=== PATIENT | male | born 1950 | race Caucasian/White ===

== ENCOUNTER 2022-01-26 09:31 | Day surgery (SDC) | payer MEDICARE, OTHER, SELFPAY ==
[2022-01-26 10:15] VITALS: BP 118/73; PULSE 54; RESP 16; TEMP 36.3; O2SAT 93
[2022-01-26] MEDS: Tropicam./Phenyleph. (1/2.5%) 5 ML BTL OD ×3 (10:31→10:42)
--- NOTE | 2022-01-26 11:37 | ANES.PREOP_ITS ---
General Info Date of Service Date Performed: 01/26/22 Height: 5 ft 9 in Weight: 115.4 kg Body Mass Index (BMI): 37.5 Surgical Procedure: Operation Date: 01/26/22 12:40 Proposed Procedure Side Surgeon p Cataract Extraction with IOL Implant Right Stevie Mendzoa MD Meds Allergies and Home Medications Allergies Allergy/AdvReac Type Severity Reaction Status Date / Time gluten Allergy Verified 01/26/22 10:29 iodine Allergy Verified 01/26/22 10:29 levofloxacin Allergy Diarrhea Verified 01/26/22 10:29 shellfish derived Allergy Other (See Verified 01/26/22 10:29 Comment) simvastatin Allergy Verified 01/26/22 10:29 Home Medication Medication Instructions Recorded coenzyme Q10 100 mg capsule 100 mg PO DAILY 01/24/22 colchicine 0.6 mg tablet (Colcrys) 0.6 mg PO BID PRN 01/24/22 fluorouracil 5 % topical cream 1 applic topical BID 01/24/22 (Efudex) furosemide 20 mg tablet 20 mg DAILY 01/24/22 ibuprofen 800 mg tablet 800 mg PO TID PRN 01/24/22 levothyroxine 25 mcg tablet 25 mcg PO DAILY 01/24/22 metoprolol tartrate 100 mg tablet 100 mg PO DAILY 01/24/22 galmnbkh-gfyglgfwn-ppzezdtid 3.5 4 drp otic (ear) Q8H 01/24/22 mg-10,000 unit/mL-1 % ear drops,susp omega 2-yxb-cbs-fish oil 1,000 mg 1,000 cap PO DAILY 01/24/22 (120 mg-180 mg) capsule (Fish Oil) potassium chloride 20 mEq 20 meq PO DAILY 01/24/22 tablet,extended release triamcinolone acetonide 0.1 % 1 applic topical BID PRN 01/24/22 topical cream Current Visit Medications: Current Medications Generic Name Dose Route Start Last Admin Trade Name Freq PRN Reason Stop Dose Admin Acetaminophen 1,000 mg 01/26/22 06:00 Acetaminophen 500 Mg Tab PO Q4H PRN PRN Miscellaneous Medication 0 ml 01/26/22 06:00 Prednisolone 1%, Moxifloxacin 0.5%, Nepafenac 0.1% 5ml Btl OD DIRECTED RUTH Miscellaneous Medication 0 ml 01/26/22 06:00 01/26/22 10:42 Tropicam./Phenyleph. (1/2.5%) 5 Ml Btl OD 1 drp DIRECTED R[facility] Administration Tetracaine HCl 0 ml 01/26/22 06:00 Tetracaine 0.5% 4 Ml Btl OD DIRECTED [facility] Medical History Medical History (Updated 01/26/22 @ 11:51 by Stevie Mendoza MD) COVID 10/2021 Hx of cataract Hx of essential hypertension Hx of gout Hx of hyperlipidemia Perianal cyst removed 2000 Surgical History Surgical History Hx of cholecystectomy Hx of colonoscopy Hx of foot surgery heel spur right foot Tobacco Smoking/Tobacco Use Status: Former Tobacco Use Alcohol Alcohol Intake: never Substance Use Substance use: Never Substance use type: does not use Vital Signs and Lab Results Vital Signs Most Recent Vital Signs in EMR: Most Recent Vital Signs Temp Pulse Resp BP Pulse Ox 36.3 C L 54 L 16 118/73 93 01/26/22 10:15 01/26/22 10:15 01/26/22 10:15 01/26/22 10:15 01/26/22 10:15 Lab Results Blood Type / Crossmatch: No Data to Display Complete Blood Count: No Data to Display Complete Metabolic Panel: No Data to Display Liver Function Panel: No Data to Display Coagulation Panel: No Data to Display Cardiac Panel: No Data to Display Arterial Blood Gas: No Data to Display Venous Blood Gas: No Data to Display Pancreas Panel: No Data to Display Thyroid Panel: No Data to Display Infectious Disease: No Data to Display Blood Cultures: No Data to Display Toxicology Panel: No Data to Display Anesthesia Assessment and Plan Anesthesia History Personal History: No History of Anesthesia Complications Family History: No Family History of Anesthesia Complications Exercise Tolerance Exercise Tolerance: Metabolic Equivalents>4 Pertinent Negatives Pertinent Negatives: No Symptoms of GERD, No Major Cardiovascular Symptoms or Complaints and No Major Pulmonary Symptoms or Complaints Cardiac & Pulmonary Exam Cardiac Exam: Normal S1/S2 Heart Sounds Pulmonary Exam: Clear Bilateral Breath Sounds Implantable Cardiac Device Does patient have a Pacemaker or an ICD?: No Airway Exam Known Difficult Airway: No Mallampati Class: 2 Mouth Opening: Normal (> 3cm) Thyromental Distance: Greater than 3 cm Facial Hair: Full Han Neck Range of Motion: Full ROM Neck Circumference: Normal Teeth Condition: Removable Dentures/Plates Upper and Removable Dentures/Plates Lower ASA Classification ASA Score: ASA 2 Emergency Case?: No NPO Status NPO Status: NPO Clears >2 hours, Solids >8 hours Anesthesia Plan Resuscitation Status: Full Code Anesthesia Technique: MAC Anesthesia Airway Planned: Natural Airway Monitors Used: Standard Monitors
[2022-01-26 11:40] VITALS: BMI 37.5
[2022-01-26] MEDS: Balanced Salt Soln.-PLUS 500 ML BAG (12:17)
[2022-01-26] MEDS: Tetracaine 0.5% 4 ML BTL OD (12:17)
[2022-01-26] MEDS: Lidocaine 2% Jelly 6 ML SYR (12:18)
[2022-01-26] MEDS: Duovisc Viscoelastic System EACH 1 EACH (12:18)
[2022-01-26] MEDS: Povidone-Iodine Ophth 30 ML BTL (12:23)
[2022-01-26] MEDS: Trypan Blue 0.06% 0.5 ML SYR (12:23)
[2022-01-26 12:30] VITALS: BP 118/72; PULSE 57; RESP 16; TEMP 36.4; O2SAT 94
--- NOTE | 2022-01-26 12:31 | W.PM.DSUDISC ---
Date of service: 01/26/22 Time of Service: 12:31 Discharge Plan Disposition Patient Disposition: HOME Condition: Good Discharge Details Attending Provider: Stevie Mendoza Primary Care Provider: Owen [facility] New Rx's Prescriptions: No Action furosemide 20 mg Tablet 20 mg DAILY colchicine [Colcrys] 0.6 mg Tablet 0.6 mg PO BID PRN levothyroxine 25 mcg Tablet 25 mcg PO DAILY potassium chloride 20 mEq Tablet Extended Release 20 meq PO DAILY metoprolol tartrate 100 mg Tablet 100 mg PO DAILY ibuprofen 800 mg Tablet 800 mg PO TID PRN triamcinolone acetonide 0.1 % Cream 1 applic TOPICAL BID PRN fluorouracil [Efudex] 5 % Cream 1 applic TOPICAL BID omega 4-zxj-ufg-fish oil [Fish Oil] 1,000 mg (120 mg-180 mg) Capsule 1,000 cap PO DAILY fialncdo-khvwxklvi-FR 3.5-10,000-1 mg/mL-unit/mL-% Drops,Suspension 4 drp OTIC (EAR) Q8H Label Comments: L ear coenzyme Q10 100 mg Capsule 100 mg PO DAILY Discharge Instructions Stand Alone Forms: Post-op Topical Cataract, Zia Barth (DSU) DS: Diagnosis Discharge Diagnosis (1) Posterior subcapsular age-related cataract, right eye: Status: Resolved (2) Nuclear sclerotic cataract of right eye: Status: Resolved (3) Cortical cataract of right eye: Status: Resolved
--- NOTE | 2022-01-26 12:33 | W.ANESPOSTOP ---
Postoperative Evaluation Date, Time and Location Date Performed: 01/26/22 Time Performed: 12:33 Patient Location: Day Surgery Unit Vital Signs Most Recent Imported Vital Signs: Most Recent Vital Signs Temp Pulse Resp BP Pulse Ox 36.3 C L 54 L 16 118/73 93 01/26/22 10:15 01/26/22 10:15 01/26/22 10:15 01/26/22 10:15 01/26/22 10:15 Most Recent Manually Entered Vital Signs: Adult Blood Pressure: 118/72 Heart Rate: 57 Respirations: 12 Oxygen Saturation (%): 97 Temperature (C): 36.3 C Pain Score (0-10 Scale): 0 Pain Score Most Recent Pain Score: Most Recent Pain Score Pain Level 0 01/26/22 10:15 Assessment Mental Status: Awake (Alert & Oriented to Patient Baseline) Airway and Respiratory Function: Patent airway with normal (patient baseline) respiratory exam Cardiovascular Function: Hemodynamically Stable Hydration Status: Adequately Hydrated Nausea & Vomiting: No Nausea or Vomiting Pain: Pt. Denies Any Pain Peripheral Nerve Block: Patient did not receive a nerve block
[2022-01-26 12:34] VITALS: BP 118/72; PULSE 57; RESP 12; TEMPC 36.3; O2SAT 97
--- NOTE | 2022-01-26 12:34 | W.PM.OP ---
Date of service: 01/26/22 Time of Service: 12:34 Operative Note Operative Note DATE OF PROCEDURE: 01/26/22 PRE-OP DIAGNOSIS: Dense nuclear/cortical/posterior subcapsular cataract, right eye POST-OP DIAGNOSIS: same PROCEDURE: Cataract extraction using phacoemulsification with intraocular lens implantation, right eye, using capsular staining with Vision Blue SURGEON: Stevie Mendoza ANESTHESIA TYPE: Local By Surgeon and MAC Refer to Anesthesia Record PATHOLOGY: none sent COMPLICATIONS: None Patient was transported to: same day Patient's condition: stable Implants: Basim and Basim / [employer] Tecnis [id number] Indications: Progressive visual loss due to cataract, right eye Procedure Description: CATARACT SURGERY OPERATIVE REPORT PREOPERATIVE DIAGNOSIS: 1. Dense nuclear/cortical/posterior subcapsular cataract, right eye 2. Poor red reflex secondary to #1 POSTOPERATIVE DIAGNOSIS: Same OPERATION: 1. Cataract extraction using phacoemulsification with posterior chamber intraocular lens implant, right eye. 2. Capsular staining with Vision Blue IOL: IOL Employment Specialist/Program Manager/Model: Basim & Basim / LETITIA Tecnis [id number] IOL Power: + 17.5 diopters IOL Serial Number: [id number] Optic Diameter: 6.0mm Haptic/Overall Diameter: 13.0mm PHACO INFO: Lionel [employer] Vision System with OZil and Active Fluidics Cumulative Dispersed Energy (CDE): 21.87 seconds SURGEON: Stevie Mendoza MD, YAHIR ANESTHESIA: Monitored Anesthesia Care (MAC), with local sub-tenon's anesthetic infiltration COMPLICATIONS: None SPECIMENS: None INDICATIONS FOR PROCEDURE: The patient is a 71-year-old gentleman with history of diminished visual acuity in his right eye secondary to the development of dense nuclear/cortical/posterior subcapsular cataract. The option of cataract surgery was offered to the patient and he wished to proceed. PROCEDURE: The correct surgical eye was identified and marked as the right eye and the pupil was dilated in the preoperative area using mydriatics and cycloplegics. The dilated pupil size was 6.0 mm. The patient elected to proceed without oral sedation. The patient was brought to the operating room where cardiopulmonary monitoring was instituted and surgical time-out was performed, confirming the correct operative eye and IOL power. Topical anesthesia was administered and ophthalmic povidone-iodine 5% was instilled into the conjunctival fornices. Lidocaine gel was applied to the cornea and the jb-ocular area was prepped with Betadine 10% solution and draped in the usual sterile fashion for intraocular surgery, including an aperture drape. A Tegaderm transparent film dressing was cut in half and used to cover the lashes and lid margins. Care was taken to sequester the lashes and lid margins under the Tegaderm dressing. A lid speculum was placed between the lids of the operative eye and the Lionel [employer] Revalia operating microscope was maneuvered into position. Jillian scissors were then used to make a conjunctival buttonhole approximately 6mm posterior to the limbus in the inferonasal quadrant. Blunt dissection was carried out to expose bare sclera, and a blunt-tipped sub-tenon?s anesthesia cannula was introduced and passed posteriorly along the globe where non-preserved plain lidocaine was injected into posterior sub-Tenon?s space. A sideport knife was used to make a paracentesis port inferotemporally. Intraocular phenylephrine/lidocaine was injected into the anterior chamber. Air was injected into the anterior chamber, followed by Vision Blue, which was painted over the anterior capsule and then irrigated out with BSS. The anterior chamber was filled with viscoelastic. A keratome knife was used to create a 2-plane near clear corneal tunnel extending approximately 2 mm into clear cornea superior temporally.. A flap was raised on the anterior capsule and capsulorhexis forceps were used to complete a continuous curvilinear capsulorhexis of 5.0 mm. Balanced salt solution was then used to perform cortical cleaving hydrodissection and nuclear hydrodelineation until the lens could be freely rotated within the capsular bag. The lens nucleus was then disassembled and removed within the capsular bag and iris plane using phacoemulsification. Residual cortical material was removed using the I/A handpiece. The posterior capsule was carefully polished to remove as much residual lens epithelial cells as safely possible. The capsular bag was then inflated and the anterior chamber deepened with viscoelastic. The lens implant described above was inserted into the capsular bag using the LETITIA [place] Injector. A Kuglen hook was used to dial the IOL into position. Residual viscoelastic was then removed first from posterior to the IOL, then from the anterior chamber using the I/A handpiece. The lens implant was noted to center nicely within the capsular bag. The incisions were stromally hydrated, and the anterior chamber was reformed using BSS. Then 0.5cc of moxifloxacin 1.0mg/ml were injected into the capsular bag and anterior chamber. The incisions were checked with a Weck spear and found to be secure. Several drops of ophthalmic povidone-iodine 5% were then applied to the eye followed by two drops of Imprimis combination prednisolone/moxifloxacin/nepafenac solution. The drapes were removed and a clear plastic protective eye shield was placed over the eye. The patient was then returned to Same Day Surgery in stable condition.
== END 2022-01-26 13:00 | disposition home or self-care (01) ==
LOC: SUR 09:32
PROVIDERS: PCP Internal Medicine; Visit Provider Ophthalmology
PROC: (CPT 66982; principal; 2022-01-26 12:30)
DX: H25.811 Combined forms of age-related cataract, right eye (principal); H26.8 Other specified cataract
CPT/HCPCS: 66982; V2632